=== PATIENT | male | born 1965 | race Native Hawaiian/Other Pacific Islander ===

== ENCOUNTER 2022-11-04 23:43 | Outpatient (CLI) | payer MEDICAID | END 2022-11-04 23:59 | disposition short-term general hospital (02) | LOC: EMS 23:43 | DX: R07.89 Other chest pain (principal); M79.602 Pain in left arm; R06.02 Shortness of breath; R11.0 Nausea; R61 Generalized hyperhidrosis | CPT/HCPCS: A0425; A0427; A0999 ==

== ENCOUNTER 2022-11-09 12:50 | Emergency (ER) | payer MEDICARE, MEDICAID ==
[2022-11-09 12:57] VITALS: BP 144/87
--- NOTE | 2022-11-09 14:27 | ED Physician Documentation ---
PD HPI HEENT - Stated complaint Stated Complaint: TOOTHACHE,SWOLLEN - Chief complaint Chief Complaint: Heent - History obtained from History obtained from: Patient - History of Present Illness Timing - onset: How many days ago (3-4) Timing - duration: Days (3-4) Timing - details: Gradual onset, Still present Location: Tooth (left upper) Associated symptoms: Facial swelling (upper lip and around base of nostril.). No: Fever, Congestion, Rhinorrhea, Cough Similar symptoms before: Diagnosis (dental infections remotely.) Recently seen: Not recently seen Review of Systems Constitutional: denies: Fever, Chills, Myalgias Ears: denies: Drainage/discharge Nose: denies: Rhinorrhea / runny nose, Congestion, Sinus pressure / pain Throat: reports: Dental pain / toothache. denies: Sore throat Respiratory: denies: Cough Skin: denies: Rash PD PAST MEDICAL HISTORY - Past Medical History Cardiovascular: None Respiratory: None Endocrine/Autoimmune: None - Present Medications Home Medications: Ambulatory Orders Medication Instructions Recorded Confirmed HYDROcod/ACETAM 5/325 [[place] 5/325] 1 ea PO Q6H PRN #18 tablet 11/09/22 Naproxen 500 mg PO BID #20 tab 11/09/22 clindamycin HCL [Clindamycin HCl] 300 mg PO TID 7 Days #20 cap 11/09/22 - Allergies Allergies/Adverse Reactions: Allergies Allergy/AdvReac Type Severity Reaction Status Date / Time No Known Drug Allergies Allergy Verified 11/09/22 12:55 PD ED PE NORMAL - Vitals Vital signs reviewed: Yes - General General: Alert and oriented X 3, No acute distress, Well developed/nourished - HEENT HEENT: Pharynx benign. No: Dentition benign (Left upper frontal incisor with some dental caries. There is swelling at the gumline and this extends up to the under the upper lip and just at the lower left nasal passageway floor. No pointing or draining. I do not feel easy access point for incision. No fluctuance actually felt.) - Neck Neck: Supple, no meningeal sign, No adenopathy - Cardiac Cardiac: RRR, No murmur - Respiratory Respiratory: Clear bilaterally - Derm Derm: Normal color, Warm and dry, No rash Results - Vitals Vitals: Vital Signs - 24 hr 04/09/23 12:55 Temperature 36.8 C Heart Rate 90 Respiratory 16 Rate Blood Pressure 144/87 H O2 Saturation 99 Oxygen O2 Source Room air PD Medical Decision Making - ED course Complexity details: considered differential (Dental infection with swelling. I do not feel fluctuance. There may be an early small abscess but I do not see needs the entry point for incision. We will try antibiotics and pain medicine.), d/w patient Departure - Departure Disposition: 01 Home, Self Care Clinical Impression: Dental infection Condition: Stable Record reviewed to determine appropriate education?: Yes Instructions: ED Abscess Dental Prescriptions: clindamycin HCL [Clindamycin HCl] 300 mg PO TID 7 Days #20 cap Naproxen 500 mg PO BID #20 tab HYDROcod/ACETAM 5/325 [[place] 5/325] 1 ea PO Q6H PRN #18 tablet PRN Reason: Pain Comments: You do have an obvious dental infection with likely developing abscess. At this point I do not see an easy target for drainage. Most the time this will get better with antibiotics alone and warm towels compresses to the area. Use an anti-inflammatory. I suggest naproxen 500 mg twice daily with food. To that add Tylenol every 4-6 hours if needed for pain or hydrocodone 1-2 every 4-6 hours if needed for worse pain. Clindamycin antibiotic 3 times daily for the next week. Call your dentist tomorrow for an appointment at their next available time. This will be for more definitive care of the tooth. At this point the main focus is eliminating the infection. I sent your prescription to your preferred pharmacy. I am prescribing a short course of narcotic pain medication for you. These are potentially dangerous and addictive medications that should be used carefully. These medications may constipate you. Take an uoio-hip-[id number] stool softener such as docusate twice daily with plenty of water while taking these medications. If you go 24 hours without a bowel movement, take [id number] MiraLAX, per package instructions. Do not drink or drive while taking these medications. If you received narcotic or sedating medications while in the emergency department do not drive for 24 hours. Store this medication in a safe, secure place and out of reach of children. It is a violation of federal law to give or sell this medication to another person or to use in a manner other than prescribed. The ED will not refill narcotic prescriptions, including prescriptions lost or stolen. You can dispose of unwanted medications at the [facility]'s office or at several pharmacies such as [facility]. Discharge Date/Time: 11/09/22 15:01
[2022-11-09] MEDS ORDERED: HYDROcod/ACETAM 5/325 MG TABLET PO STA (14:38)
[2022-11-09] MEDS ORDERED: NAPROXEN 250 MG TABLET PO STA (14:38)
[2022-11-09] MEDS ORDERED: CLINDAMYCIN 150 MG CAPSULE PO STA (14:38)
== END 2022-11-09 15:01 | disposition home or self-care (01) ==
LOC: ED 12:50
DX: K04.7 Periapical abscess without sinus (principal)
CPT/HCPCS: 99283; A9270

== ENCOUNTER 2022-11-14 04:12 | Emergency (ER) | payer MEDICARE, MEDICAID ==
[2022-11-14] MEDS ORDERED: oxyCODONE 5 MG TABLET PO STA (04:51)
--- NOTE | 2022-11-14 04:53 | ED Physician Documentation ---
History of Present Illness - Stated complaint Stated Complaint: MALE PX - Chief complaint Chief Complaint: General - History obtained from History obtained from: Patient - Additonal information Additional information: Patient is a 57-year-old presenting for evaluation for abscess in the rectal area which she notes has been there for 3 to 4 days. Patient states that he has had multiple abscesses in this area in the past and has always required going to the OR for drainage of them.He was recently seen here a few days ago for dental infection and has been compliant with clindamycin.He denies fever, chest pain, shortness of breath or abdominal pain. On review of his SERVANDO he was recently admitted to [facility] for an NSTEMI Earlier this month. He is unsure of his current list of medications but does believe he is on a blood thinner.He is a diabetic. Review of Systems Constitutional: denies: Fever Cardiac: denies: Chest pain / pressure Respiratory: denies: Dyspnea GI: denies: Abdominal Pain PD PAST MEDICAL HISTORY - Past Medical History Cardiovascular: None Respiratory: None Endocrine/Autoimmune: None - Present Medications Home Medications: Ambulatory Orders Medication Instructions Recorded Confirmed HYDROcod/ACETAM 5/325 [[place] 5/325] 1 ea PO Q6H PRN #18 tablet 11/09/22 Naproxen 500 mg PO BID #20 tab 11/09/22 clindamycin HCL [Clindamycin HCl] 300 mg PO TID 7 Days #20 cap 11/09/22 - Allergies Allergies/Adverse Reactions: Allergies Allergy/AdvReac Type Severity Reaction Status Date / Time No Known Drug Allergies Allergy Verified 11/09/22 12:55 - Social History Does the pt smoke?: No Smoking Status: Never smoker PD ED PE NORMAL - General General: Alert and oriented X 3, No acute distress, Well developed/nourished - HEENT HEENT: Atraumatic - Cardiac Cardiac: RRR - Respiratory Respiratory: No respiratory distress - Abdomen Abdomen: Soft, Non tender - Rectal 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 Right-sided anorectal Abscess. Patient declined digital exam) Results - Vitals Vitals: Vital Signs - 24 hr 11/14/22 04:26 Temperature 36.3 C L Heart Rate 84 Respiratory 16 Rate Blood Pressure 105/73 O2 Saturation 100 Oxygen O2 Source Room air PD Medical Decision Making - ED course ED course: Patient presenting for evaluation of an abscess to the anal rectal region. He is afebrile with stable vital signs.He reports requiring OR drainage of all of his abscesses in the past. We were discussing his recent hospitalization for an NSTEMI at [facility] And I was asking questions regarding his hospitalization and course. Patient then decided that he would like to seek treatment back at [facility] were he was just at For his heart attack. He is aware that we do have a surgeon here and that we would be able to evaluate him here in our emergency department. He is also aware that we are able to arrange for transfer if that was necessary. However his is here and he would rather have her drive him to [facility]. Patient did request a dose of pain medication. He understands that he is able to return to our emergency department at any time if he changes his mind. Departure - Departure Disposition: 01 Home, Self Care Clinical Impression: Anorectal abscess Condition: Stable Comments: You have an abscess that needs to be drained and have elected to seek treatment at another hospital. We have given you a dose of pain medicine here. Please do not drive. You are welcome to return to this ER at anytime.
[2022-11-14 05:11] VITALS: BP 110/81
== END 2022-11-14 05:11 | disposition home or self-care (01) ==
LOC: ED 04:12
DX: K61.2 Anorectal abscess (principal)
CPT/HCPCS: 99282; 99283; A9270